=== PATIENT | female | born 1945 | race Caucasian/White ===

== ENCOUNTER 2024-12-10 15:24 | Inpatient (IN) | payer MEDICARE, BC ==
[~2024-12-10] VITALS: Ht 154.9 cm; Wt 49.9 kg
[2024-12-10 15:24] VITALS: BP 117/64
[2024-12-10 15:46] VITALS: BP 117/64
[2024-12-10] MEDS ORDERED: ROSU20TA2 PO (23:19)
[2024-12-10] MEDS ORDERED: SERT50TA PO (23:19)
[2024-12-10] MEDS ORDERED: DOCU100T2 PO (23:19)
[2024-12-10] MEDS ORDERED: ALEN70TA80 PO (23:19)
[2024-12-10] MEDS ORDERED: DONE10TA44 PO (23:19)
[2024-12-10] MEDS ORDERED: ENOX40DI SQ (23:19)
[2024-12-10] MEDS ORDERED: PANT40TA49 PO (23:19)
[2024-12-10 23:43] VITALS: BP 139/64; TEMP 98.1; O2SAT 97
[2024-12-11] MEDS ORDERED: ALENDRONATE SODIUM 70 MG TABLET PO SCH
[2024-12-11] MEDS: PANTOPRAZOLE SODIUM 40 MG TABLET.DR PO SCH (06:31)
[2024-12-11 06:46] VITALS: BP 127/61; TEMP 98.3; O2SAT 94
[2024-12-11 08:01] VITALS: BP 135/58; TEMP 98; O2SAT 100
[2024-12-11] MEDS: SERTRALINE HCL 50 MG TABLET PO SCH (09:34)
[2024-12-11] MEDS: DOCUSATE SODIUM 100 MG CAPSULE PO SCH (09:34)
[2024-12-11] MEDS: ENOXAPARIN SODIUM 40 MG/0.4 ML DISP.SYRIN SQ SCH (09:41)
[2024-12-11 16:50] VITALS: BP 131/66; TEMP 97.6; O2SAT 97
[2024-12-11] MEDS: ATORVASTATIN 40 MG TABLET PO SCH (20:59)
[2024-12-11] MEDS: DONEPEZIL 10 MG TABLET PO SCH (20:59)
[2024-12-11 21:54] VITALS: BP 125/53; TEMP 98.1; O2SAT 94
[2024-12-12 06:18] VITALS: BP 138/58; TEMP 98.7; O2SAT 96
[2024-12-12 08:00] VITALS: BP 132/57; TEMP 97.8; O2SAT 98
[2024-12-12 16:00] VITALS: BP 116/56; TEMP 98.1; O2SAT 97
[2024-12-12 20:00] VITALS: BP 134/69; TEMP 97.6; O2SAT 95
[2024-12-13 06:00] VITALS: BP 132/61; TEMP 97.4; O2SAT 97
[2024-12-13 08:30] VITALS: BP 128/61; TEMP 97.8; O2SAT 97
[2024-12-13] MEDS: SERTRALINE HCL 50 MG TABLET PO SCH (08:54)
[2024-12-13 11:09] LABS: PLATELET COUNT (AUTO) 211 K/uL (179-408); RED BLOOD CELL COUNT(AUTO) 3.90 MIL/uL (3.63-4.92); RED CELL DISTRIBUTION WIDTH 13.7 % (12.3-17.7); WHITE BLOOD COUNT (AUTO) 6.7 K/uL (3.8-11.8)
[2024-12-13 11:21] LABS: ASPARTATE AMINOTRANSFERASE 50 U/L (15-37); CREATININE 0.7 mg/dL (0.6-1.3); SODIUM SERUM 143 mmol/L (136-145); TOTAL PROTEIN, SERUM 6.8 g/dL (6.4-8.2); UREA NITROGEN, BLOOD 18 mg/dL (7-18)
[2024-12-13 17:51] VITALS: BP 117/56; TEMP 97.7; O2SAT 95
[2024-12-13 20:00] VITALS: BP 100/43; TEMP 98.2; O2SAT 96
[2024-12-14 06:00] VITALS: BP 105/43; TEMP 97.9; O2SAT 97
[2024-12-14] MEDS: ALENDRONATE SODIUM 70 MG TABLET PO SCH (06:57)
[2024-12-14 07:53] VITALS: BP 118/60; TEMP 98; O2SAT 96
[2024-12-14] MEDS: LACTULOSE 20 G/30 ML LIQUID UDC PO PRN (16:09)
[2024-12-14 20:38] VITALS: BP 127/58; TEMP 98.3; O2SAT 95
[2024-12-14] MEDS: MAG HYDROX/AL HYDROX/SIMETH 30 ML LIQUID UDC PO ONE (22:15)
[2024-12-14 22:48] LABS: PLATELET COUNT (AUTO) 192 K/uL (179-408); RED BLOOD CELL COUNT(AUTO) 4.19 MIL/uL (3.63-4.92); RED CELL DISTRIBUTION WIDTH 13.8 % (12.3-17.7); WHITE BLOOD COUNT (AUTO) 8.5 K/uL (3.8-11.8)
[2024-12-14 22:59] LABS: CREATININE 0.7 mg/dL (0.6-1.3); SODIUM SERUM 137 mmol/L (136-145); UREA NITROGEN, BLOOD 20 mg/dL (7-18)
[2024-12-14 23:05] LABS: ASPARTATE AMINOTRANSFERASE 56 U/L (15-37); TOTAL PROTEIN, SERUM 6.8 g/dL (6.4-8.2)
[2024-12-14 23:07] LABS: *BILIRUBIN,URIN NEGATIVE (NEGATIVE); *BLOOD, URINE TRACE (NEGATIVE); *CLARITY,URINE CLEAR (CLEAR); *COLOR,URINE YELLOW (YELLOW); *KETONES,URINE TRACE (NEGATIVE); *PROTEIN,URINE NEGATIVE (NEGATIVE); *UROBILINOGEN,URINE 0.2 E.U./dl (NORMAL); LEUKOCYTE ESTERASE ,URINE NEGATIVE (NEGATIVE); NITRITE, URINE NEGATIVE (NEGATIVE); UGLUCOSE NEGATIVE (NEGATIVE)
[2024-12-14 23:32] LABS: SQUAMOUS EPITHELIAL CELL,UR FEW /HPF (NONE SEEN)
[2024-12-14] MEDS: ONDANSETRON HCL 4 MG TABLET PO PRN (23:33)
[2024-12-15] MEDS: IV NS 1000 ML 1,000 ML IV PRN (01:21)
[2024-12-15 06:00] VITALS: BP 105/48; TEMP 97.9; O2SAT 99
[2024-12-15] MEDS ORDERED: METRONIDAZOLE 500 MG/NS 100ML 100 ML IV ONE (06:25)
[2024-12-15] MEDS: METRONIDAZOLE 500 MG/NS 100ML 500 MG in PREMIXED 1 EACH IV SCH (06:34)
[2024-12-15 08:26] VITALS: BP 104/40; TEMP 98.4; O2SAT 96
[2024-12-15] MEDS: MIRALAX 17 GM POWD.PACK PO SCH (09:19)
[2024-12-15 16:09] VITALS: BP 101/41; TEMP 98.3; O2SAT 96
[2024-12-15 19:42] VITALS: BP 105/46; TEMP 98.1; O2SAT 95
[2024-12-16 06:31] VITALS: BP 111/54; TEMP 97.8; O2SAT 96
[2024-12-16 07:54] VITALS: BP 108/50; TEMP 98; O2SAT 98
[2024-12-16 19:11] VITALS: BP 124/49; TEMP 98.6; O2SAT 97
[2024-12-16 20:00] VITALS: BP 118/52; TEMP 98.1; O2SAT 97
[2024-12-17 06:47] VITALS: BP 139/54; TEMP 97.7; O2SAT 96
[2024-12-17 07:51] VITALS: BP 133/55; TEMP 97.8; O2SAT 98
[2024-12-17 08:13] LABS: PLATELET COUNT (AUTO) 173 K/uL (179-408); RED BLOOD CELL COUNT(AUTO) 3.47 MIL/uL (3.63-4.92); RED CELL DISTRIBUTION WIDTH 13.3 % (12.3-17.7); WHITE BLOOD COUNT (AUTO) 6.8 K/uL (3.8-11.8)
[2024-12-17 08:29] LABS: ASPARTATE AMINOTRANSFERASE 23 U/L (15-37); CREATININE 0.7 mg/dL (0.6-1.3); SODIUM SERUM 139 mmol/L (136-145); TOTAL PROTEIN, SERUM 6.1 g/dL (6.4-8.2); UREA NITROGEN, BLOOD 15 mg/dL (7-18)
[2024-12-17 16:45] VITALS: BP 121/51; TEMP 97.8; O2SAT 98
[2024-12-17 21:27] VITALS: BP 112/50; TEMP 97.9; O2SAT 98
[2024-12-18 07:38] VITALS: BP 135/63; TEMP 97.6; O2SAT 98
[2024-12-18 08:26] LABS: PLATELET COUNT (AUTO) 192 K/uL (179-408); RED BLOOD CELL COUNT(AUTO) 3.60 MIL/uL (3.63-4.92); RED CELL DISTRIBUTION WIDTH 13.4 % (12.3-17.7); WHITE BLOOD COUNT (AUTO) 6.3 K/uL (3.8-11.8)
[2024-12-18 08:39] LABS: CREATININE 0.5 mg/dL (0.6-1.3); SODIUM SERUM 138 mmol/L (136-145); UREA NITROGEN, BLOOD 10 mg/dL (7-18)
[2024-12-18 16:00] VITALS: BP 125/52; TEMP 97.7; O2SAT 97
[2024-12-18 20:00] VITALS: BP 139/46; TEMP 98.4; O2SAT 99
[2024-12-19 05:00] VITALS: BP 144/62; TEMP 97.7; O2SAT 98
[2024-12-19 08:00] VITALS: BP 129/51; TEMP 97.9; O2SAT 97
[2024-12-19 21:21] VITALS: BP 123/51; TEMP 98.1; O2SAT 99
[2024-12-20 06:58] VITALS: BP 147/61; TEMP 97.7; O2SAT 97
[2024-12-20 07:49] VITALS: BP 141/63; TEMP 97.2; O2SAT 98
== END 2024-12-20 14:20 | disposition home health service (06) | DRG 949 ==
PROVIDERS: ADMIT Physical Medicine & Rehabilitation Pain Medicine; ATTEND Physical Medicine & Rehabilitation Pain Medicine
DX: S06.5XAD Traumatic subdural hemorrhage with loss of consciousness status unknown, subsequent encounter (principal); D62 Acute posthemorrhagic anemia; K57.32 Diverticulitis of large intestine without perforation or abscess without bleeding; R29.6 Repeated falls; W19.XXXD Unspecified fall, subsequent encounter; E78.5 Hyperlipidemia, unspecified; F02.80 Dementia in other diseases classified elsewhere, unspecified severity, without behavioral disturbance, psychotic disturbance, mood disturbance, and anxiety; G30.9 Alzheimer's disease, unspecified; I10 Essential (primary) hypertension; K21.9 Gastro-esophageal reflux disease without esophagitis; M19.90 Unspecified osteoarthritis, unspecified site; M81.0 Age-related osteoporosis without current pathological fracture; R73.03 Prediabetes; Z85.3 Personal history of malignant neoplasm of breast; Z90.13 Acquired absence of bilateral breasts and nipples; Z91.81 History of falling; K56.41 Fecal impaction; K80.20 Calculus of gallbladder without cholecystitis without obstruction; R53.1 Weakness
CPT/HCPCS: 36415; 83735; 84100; 85025; 97535-GO-CO; A4663; J1650; J1956; J3490; J7040; J8499; Q0162